=== PATIENT | female | born 1945 | race Two or more races ===

== ENCOUNTER 2023-04-03 05:20 | Day surgery (SDC) | payer OTHER ==
[~2023-04-03 05:20] MED LIST: ADULT LOW DOSE81 M1 PO; NORVASC10 MG PO; TYLEN PO
[2023-04-03] MEDS ORDERED: MACROBID 100 M100 MG PO (09:19)
[2023-04-03] MEDS ORDERED: TRAM1TAB98 PO (09:19)
== END 2023-04-03 10:40 | disposition home or self-care (01) ==
LOC: CIR.AMB 05:20
PROVIDERS: ATTEND Obstetrics & Gynecology Gynecology
DX: N81.11 Cystocele, midline (principal); N81.5 Vaginal enterocele; D64.9 Anemia, unspecified; R07.9 Chest pain, unspecified; I10 Essential (primary) hypertension; Z20.822 Contact with and (suspected) exposure to COVID-19; Z91.041 Radiographic dye allergy status